=== PATIENT | female | born 1955 | race African-American/Black ===

== ENCOUNTER 2020-08-13 17:50 | Emergency (ER) | payer OTHER ==
[~2020-08-13] VITALS: Ht 154.9 cm; Wt 68.0 kg
[2020-08-13 18:10] VITALS: BP 148/72
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
--- NOTE | 2020-08-13 18:20 | NUR ---
SEEN BY BIANCA PRATT
[2020-08-13] MEDS ORDERED: IV NS 0.9% 1,000 ML BAG IV ONE (18:30)
[2020-08-13] MEDS ORDERED: HYDROMORPHONE INJ 2 MG/ML DISP.SYRIN IV ONE (18:30)
[2020-08-13] MEDS ORDERED: ONDANSETRON HCL/PF 4 MG/2 ML VIAL IVP ONE (18:30)
[2020-08-13] MEDS ORDERED: ONDANSETRON HCL/PF 4 MG/2 ML VIAL ONE (18:41)
[2020-08-13] MEDS ORDERED: HYDROMORPHONE 1 MG/1 ML DISP.SYRIN ONE (18:41)
[2020-08-13 19:15] LABS: BASOPHILS # (AUTO) 0.1 /CMM (0.0-0.2); EOSINOPHILS % (AUTO) 0.1 % (0.0-6.0); HEMATOCRIT 34 % (33-45); HEMOGLOBIN 11.2 g/dL (11.5-14.8); LYMPHOCYTES # (AUTO) 2.5 /CMM (0.8-4.8); MEAN CORPUSCULAR HGB CONC 33 g/dl (31.0-36.0); MEAN CORPUSCULAR VOLUME 90 fL (82-100); MONOCYTES # (AUTO) 0.8 /CMM (0.1-1.30); NEUTROPHILS # (AUTO) 9.2 /CMM (1.8-8.9); NEUTROPHILS % (AUTO) 72.9 % (43.0-81.0); PLATELET COUNT (AUTO) 407 /CMM (150-450); RED BLOOD CELL COUNT(AUTO) 3.81 MIL/uL (4.0-5.2); WHITE BLOOD COUNT (AUTO) 12.6 K/uL (4.3-11.0)
--- NOTE | 2020-08-13 19:15 | NUR ---
PT REFUSED EKG AT THIS TIME. NOTIFIED NAVDEEP SHANNON NP.
--- NOTE | 2020-08-13 19:20 | NUR ---
PATIENT TAKEN TO CT.
[2020-08-13] MEDS ORDERED: LORAZEPAM INJ 2 MG/ML VIAL IV ONE (19:30)
--- NOTE | 2020-08-13 19:35 | NUR ---
NAVDEEP SWITCH FOREMAN NOTIFIED OF PATIENT'S REQUEST TO LEAVE.
[2020-08-13 19:41] LABS: CALCIUM, SERUM 9.8 mg/dL (8.5-10.1); POTASSIUM 4.9 mmol/L (3.5-5.1)
[2020-08-13 19:49] LABS: ALBUMIN 3.6 g/dL (3.4-5.0); BILIRUBIN,DIRECT 0.2 mg/dL (0.0-0.2); BILIRUBIN,TOTAL 0.4 mg/dL (0.2-1.0); TOTAL PROTEIN, SERUM 8.9 g/dL (6.4-8.2)
== END 2020-08-13 19:51 | disposition left against medical advice (07) ==
LOC: ER 17:52
DX: R10.32 Left lower quadrant pain (principal); R10.12 Left upper quadrant pain; R11.0 Nausea; Z53.29 Procedure and treatment not carried out because of patient's decision for other reasons
CPT/HCPCS: 36415; 74176; 80048; 80076; 83690; 84484; 85025; 85378; 93005; 96361; 96374; 96375; 99285; J1170; J2405; J7030

== ENCOUNTER 2020-08-14 00:58 | Emergency (ER) | payer OTHER ==
[~2020-08-14] VITALS: Ht 162.6 cm; Wt 63.5 kg
[2020-08-14 01:01] VITALS: BP 130/90
== END 2020-08-14 01:50 | disposition home or self-care (01) ==
LOC: ER 01:00
DX: Z00.00 Encounter for general adult medical examination without abnormal findings (principal); Z59.0 Homelessness